=== PATIENT | female | born 1940 | race Caucasian/White ===

== ENCOUNTER → 2017-04-08 | Outpatient (CLI) | payer MEDICARE, OTHER ==
[~2017-04-08] MED LIST: ASPIRIN81 M2 PO; LASIX 20 MG TAB20 MG PO; LOPRESSOR 12.12.5 MG PO; LUMIGAN2.5 M1 OP; METFORMIN HCL500 MG PO; PREDNISONE 1 MG1 M1 PO; SYNTHROID100 MCG PO; XARELTO15 MG PO; ZOCOR20 MG PO
== END ==
LOC: M.ULTRA 10:27
DX: N95.0 Postmenopausal bleeding (principal); N88.8 Other specified noninflammatory disorders of cervix uteri; I48.91 Unspecified atrial fibrillation; I50.32 Chronic diastolic (congestive) heart failure; I27.89 Other specified pulmonary heart diseases; I10 Essential (primary) hypertension; E78.5 Hyperlipidemia, unspecified; E66.9 Obesity, unspecified; E11.9 Type 2 diabetes mellitus without complications; E03.9 Hypothyroidism, unspecified

== ENCOUNTER → 2017-12-16 | Outpatient (CLI) | payer MEDICARE, OTHER | LOC: M.RAD 09:52 | DX: Z12.31 Encounter for screening mammogram for malignant neoplasm of breast (principal) ==

== ENCOUNTER → 2018-12-18 | Outpatient (CLI) | payer MEDICARE, OTHER | LOC: M.RAD 13:00 | DX: Z12.31 Encounter for screening mammogram for malignant neoplasm of breast (principal) ==

== ENCOUNTER → 2019-01-22 | Outpatient (CLI) | payer MEDICARE, OTHER | LOC: M.LAB 15:36 | DX: I48.20 Chronic atrial fibrillation, unspecified (principal) ==

== ENCOUNTER → 2019-01-31 | Outpatient (CLI) | payer MEDICARE, OTHER ==
--- NOTE | 2019-01-31 13:45 | 2DMMODE ---
[place] [address] 2 D/M-MODE ECHOCARDIOGRAM Name: SHANTE CLEARY Room: [facility]#: [id number] Admission: 01/31/19 Attend Phys: Farzana Mejia, Discharge: Date of : 44 Date of Service: 01/31/19 1344 Report #: [id number] THIS REPORT FOR: //name// APPROVED REPORT Study performed: 01/31/2019 08:59:55 EXAM: Comprehensive 2D, Doppler, and color-flow Echocardiogram Patient Location: Out-Patient BSA: 1.91 HR: 65 bpm BP: 113/58 mmHg Other Information Study Quality: Good Indications Mitral Valve Disease Atrial Fibrillation 2D Dimensions IVSd: 12.92 (7-11mm) LVOT Diam: 20.87 (18-24mm) LVDd: 47.39 mm PWd: 10.83 (7-11mm) Ascending Ao: 30.90 (22-36mm) LVDs: 31.77 (25-40mm) Aortic Root: 24.43 mm Volumes Left Atrial Volume (Systole) LA ESV Index: 24.00 mL/m2 Aortic Valve AoV Peak Asim.: 1.25 m/s AO Peak Gr.: 6.22 mmHg LVOT Max P.52 mmHg AO Mean Gr.: 3.48 mmHg LVOT Mean P.53 mmHg LVOT Max V: 0.94 m/s AO V2 VTI: 26.45 cm LVOT Mean V: 0.56 m/s FRITZ (VTI): 2.93 cm2 LVOT V1 VTI: 22.65 cm Mitral Valve MV Decel. Time: 122.90 ms MV PHT: 35.64 ms MVA (PHT): 6.17 [place]2 [place] [address] 2 D/M-MODE ECHOCARDIOGRAM Name: SHANTE CLEARY Room: [facility]#: [id number] Admission: 01/31/19 Attend Phys: Farzana Mejia, Discharge: Date of : 44 Date of Service: 01/31/19 1344 Report #: [id number] TDI Medial E' Asim.: 0.14 m/s Lateral E' Asim.: 0.14 m/s Pulmonary Valve PV Peak Asim.: 0.92 m/s PV Peak Gr.: 3.36 mmHg Tricuspid Valve RAP Estimate: 5.00 mmHg TR Peak Gr.: 31.63 mmHg RVSP: 36.63 mmHg PA Pressure: 36.63 mmHg Left Ventricle The left ventricle is normal size. There is normal LV segmental wall motion. There is normal left ventricular wall thickness. Left ventricular systolic function is normal. The left ventricular ejection fraction is within the normal range. LVEF is 55-60%. This study is not technically sufficient to allow evaluation of the LV diastolic function due to atrial fibrillation. Right Ventricle The right ventricle is normal size. The right ventricular systolic function is normal. Atria Left atrium is moderately dilated. Right atrium is moderately dilated. Aortic Valve The aortic valve is normal in structure. No aortic regurgitation is present. There is no aortic valvular stenosis. Mitral Valve The mitral valve is normal in structure. Mild to moderate mitral regurgitation. No evidence of mitral valve stenosis. Tricuspid Valve The tricuspid valve is normal in structure. Mild tricuspid regurgitation. Moderate pulmonary hypertension. Pulmonic Valve The pulmonary valve is normal in structure. There is no pulmonic valvular regurgitation. Great Vessels The aortic root is normal in size. IVC [place] [address] 2 D/M-MODE ECHOCARDIOGRAM Name: [facility]ANTE CLEARY [id number] Admission: 01/31/19 Attend Phys: Farzana Mejia, Discharge: Date of : 44 Date of Service: 01/31/19 1344 Report #: [id number] collapses >50% with inspiration. Pericardium There is no pericardial effusion. <Conclusion> The left ventricle is normal size. There is normal left ventricular wall thickness. Left ventricular systolic function is normal. The left ventricular ejection fraction is within the normal range. LVEF is 55-60%. This study is not technically sufficient to allow evaluation of the LV diastolic function due to atrial fibrillation. The right ventricle is normal size. Left atrium is moderately dilated. Right atrium is moderately dilated. The aortic valve is normal in structure. The mitral valve is normal in structure. Mild to moderate mitral regurgitation. No evidence of mitral valve stenosis. The tricuspid valve is normal in structure. Mild tricuspid regurgitation. Moderate pulmonary hypertension. IVC is normal in size and collapses >50% with inspiration. There is no pericardial effusion. There is normal LV segmental wall motion. <ELECTRONICALLY SIGNED> By: Elías Levy MD, FACC 01/31/19 1344 1344 1344 Elías Levy MD, FACC /INF
== END ==
LOC: M.CRD 09:00
DX: I08.1 Rheumatic disorders of both mitral and tricuspid valves (principal); I27.20 Pulmonary hypertension, unspecified; Z88.2 Allergy status to sulfonamides; Z88.8 Allergy status to other drugs, medicaments and biological substances

== ENCOUNTER → 2019-06-07 | Outpatient (CLI) | payer MEDICARE, OTHER | LOC: M.RAD 08:40 | DX: N63.10 Unspecified lump in the right breast, unspecified quadrant (principal); R92.8 Other abnormal and inconclusive findings on diagnostic imaging of breast ==

== ENCOUNTER → 2019-09-03 | Outpatient (CLI) | payer MEDICARE, OTHER | LOC: M.RAD 11:45 | PROVIDERS: ATTEND Internal Medicine Cardiovascular Disease | DX: R09.02 Hypoxemia (principal) ==

== ENCOUNTER → 2019-10-29 | Outpatient (CLI) | payer MEDICARE, OTHER ==
[2019-10-29 15:10] LABS: ALBUMIN 3.8 g/dL (3.4-5.0); CALCIUM 8.8 mg/dL (8.5-10.1); CREATININE 0.8 mg/dL (0.6-1.3); POTASSIUM 4.5 mmol/L (3.5-5.1); TOTAL BILIRUBIN 0.4 mg/dL (<0.1-1.0); TOTAL PROTEIN 7.1 g/dL (6.4-8.2)
== END ==
LOC: M.LAB 14:17
PROVIDERS: ATTEND Internal Medicine Critical Care Medicine
DX: E87.79 Other fluid overload (principal); R06.02 Shortness of breath

== ENCOUNTER → 2019-11-15 | Outpatient (CLI) | payer MEDICARE, OTHER ==
--- NOTE | 2019-11-25 18:15 | PF ---
[address] [address] PULMONARY FUNCTION REPORT Name: SHANTE CLEARY Room: [facility]#: [id number] Admission: 11/15/19 Attend Phys: Adrián Correia MD Discharge: Date of : 44 Report #: [id number] THIS REPORT FOR: //name// CC: Adrián Lundberg [facility] ([place] DATE OF SERVICE: 11/15/2019 PULMONARY FUNCTION TEST The FEV1/FVC ratio is normal at 70% with an FVC decreased to 67% and FEV1 decreased to 63%. The CLP08-14 is also decreased to 31%. After the administration of a bronchodilator, there is a 12% increase in the patient's FEV1, which is however less than 200 mL. The patient's PCR38-48, however, does increase by 57%. There is no significant increase in the FVC. The patient's post-bronchodilator FEV1 is noted to be 1.36 liters. The total lung capacity is normal at 96% with a residual volume normal at 102%. The DLCO as adjusted for hemoglobin is decreased to 53%. IMPRESSION: 1. There is a moderate restrictive pattern on spirometry; however, restriction is not noted on lung volumes considering an increase in FEV1 and EAX05-90 as described above after the administration of a bronchodilator. It appears likely that the underlying etiology is moderate obstruction with evidence of reversibility. There may be a component of poor effort as well. 2. Normal lung volumes. 3. DLCO as adjusted for hemoglobin decreased to 53%. <ELECTRONICALLY SIGNED> By: Adrián Correia MD 11/25/19 1815 1908 Ajosue Correia MD /nt
== END ==
LOC: M.CT 11-06 08:00
PROVIDERS: ATTEND Internal Medicine Critical Care Medicine
DX: R06.02 Shortness of breath (principal); E87.79 Other fluid overload

== ENCOUNTER → 2019-11-26 | Outpatient (CLI) | payer MEDICARE, OTHER ==
[2019-11-26 08:15] LABS: CALCIUM 9.2 mg/dL (8.5-10.1); CREATININE 0.9 mg/dL (0.6-1.3); MAGNESIUM 1.8 mg/dL (1.8-2.4); POTASSIUM 3.7 mmol/L (3.5-5.1)
== END ==
LOC: M.LAB 07:45
PROVIDERS: ATTEND Internal Medicine Critical Care Medicine
DX: E87.79 Other fluid overload (principal)

== ENCOUNTER → 2019-12-07 | Outpatient (CLI) | payer MEDICARE, OTHER ==
--- NOTE | 2019-12-17 08:28 | SLEEP ---
[address] [address] SLEEP STUDY REPORT Name: EVINSHANTE J Room: [facility]#: [id number] Admission: 12/07/19 Attend Phys: Adrián Correia MD Discharge: Date of : 44 Report #: [id number] THIS REPORT FOR: //name// CC: Adrián Madrid This study has been reviewed in its entirety by a board certified sleep specialist DATE OF SERVICE: 12/07/2019 INDICATION FOR SLEEP STUDY: Hypersomnia. INTERPRETATION: Total duration of the study is 383 minutes out of which she was asleep for 123 minutes with an overall sleep efficiency markedly decreased to 32.2%. Sleep onset occurred around 9 minutes after lying down in bed and there is no REM sleep recorded during the sleep study. N1 sleep duration was 31% and elevated N2 duration is 93%. There is no N3 sleep recorded. There is no REM sleep recorded. This is a split night sleep study. During the initial part of the sleep study, there is a diagnostic portion, the patient was observed for 90 minutes, which included 46 minutes of sleep time. This entire duration is in non-REM sleep. During this time period, we recorded a large number of sleep related respiratory events. The patient is noted to have had 65 central apneas in addition to 17 hypopneas and 3 respiratory effort related arousals. Overall, apnea-hypopnea index was markedly elevated to 108. Body position data indicates the patient did not have any supine sleep recorded. The patient's mean heart rate at this time was 55 with a periodic limb movement index elevated to 97.6 with a periodic limb movement index with arousals being 26.4. Overall, arousal index was markedly elevated to 121 with marked sleep fragmentation observed. The patient was subsequently placed on a BiPAP, as the vast majority of events are of a central origin and persisted and the patient was initially placed on a CPAP. The patient was quickly switched over to a BiPAP. The patient remained on positive airway pressure therapy for 282 minutes. This included 78 minutes of sleep time. This entire duration was in non-REM sleep. Mean heart rate was 54, periodic limb movement index was now 15.5. Review of the BiPAP titration indicates the patient was titrated beginning with a BiPAP of 8/4, gradually increasing it to 12/6. The patient continued to have a large number of central events throughout the BiPAP titration and adequate control of the patient's sleep apnea was not achieved. The patient is noted to have had a desaturations both during the diagnostic sleep study as well as a positive airway pressure titration during the diagnostic portion. The patient's O2 saturation, however, [place] [address] SLEEP STUDY REPORT Name: SHANTE CLEARY Room: [facility] SIL Mckeon#: [id number] Admission: 12/07/19 Attend Phys: Adrián Correia MD Discharge: Date of : 44 Report #: [id number] at or above 88%. IMPRESSION: 1. Central sleep apnea with an apnea-hypopnea index markedly elevated at 108. It is, however, noted that a large number of central apneas are recorded close to sleep/wake transition. O2 saturation is adequately maintained at or above 88% during the diagnostic portion of the sleep study. 2. There is a marked reduction in total sleep time in the reduction in total sleep efficiency to 32.2% as above. 3. The patient failed CPAP therapy. CPAP is also not appropriate for this patient as the patient has central sleep apnea. The patient is also noted to continue to have sleep related respiratory events, primarily central on BiPAP therapy during the sleep study. RECOMMENDATIONS: 1. I recommend proceeding to a repeat sleep study for a repeat BiPAP titration. In case the patient continues to have central events and irregular BiPAP again during the next sleep study, then I would recommend placing the patient on a BiPAP AutoSV advanced. Note that the patient's last left ventricular ejection fraction is normal and therefore BiPAP AutoSV advanced can be used if indicated. 2. Prior to the next sleep study, I will evaluate regarding whether a hypnotic agent should be administered at the beginning of the sleep study. 3. Recommend avoiding driving or other activities requiring vigilance if drowsy. This entire sleep study was reviewed by board certified sleep physician. <ELECTRONICALLY SIGNED> By: Adrián Correia MD 12/17/19 0828 [id number] Correia MD /nt
== END ==
LOC: M.SLEEPLAB 21:00
PROVIDERS: ATTEND Internal Medicine Critical Care Medicine
DX: G47.31 Primary central sleep apnea (principal); G47.10 Hypersomnia, unspecified

== ENCOUNTER → 2019-12-11 | Outpatient (CLI) | payer MEDICARE, OTHER | LOC: M.CT 12-07 21:00 | PROVIDERS: ATTEND Internal Medicine Critical Care Medicine | DX: J84.10 Pulmonary fibrosis, unspecified (principal); K44.9 Diaphragmatic hernia without obstruction or gangrene; J98.4 Other disorders of lung; I25.10 Atherosclerotic heart disease of native coronary artery without angina pectoris ==

== ENCOUNTER → 2019-12-12 | Outpatient (CLI) | payer MEDICARE, OTHER ==
[2019-12-12 13:18] LABS: CALCIUM 9.3 mg/dL (8.5-10.1); CREATININE 0.9 mg/dL (0.6-1.3); MAGNESIUM 2.1 mg/dL (1.8-2.4); POTASSIUM 4.1 mmol/L (3.5-5.1)
== END ==
LOC: M.LAB 12:18
PROVIDERS: ATTEND Internal Medicine Critical Care Medicine
DX: E87.79 Other fluid overload (principal); R91.8 Other nonspecific abnormal finding of lung field

== ENCOUNTER → 2019-12-21 | Outpatient (CLI) | payer MEDICARE, OTHER | LOC: M.RAD 09:00 | PROVIDERS: ATTEND Family Medicine | DX: N63.10 Unspecified lump in the right breast, unspecified quadrant (principal); R92.2 Inconclusive mammogram ==

== ENCOUNTER → 2020-01-09 | Outpatient (CLI) | payer MEDICARE, OTHER ==
[2020-01-09 10:24] LABS: CALCIUM 8.7 mg/dL (8.5-10.1); CREATININE 0.8 mg/dL (0.6-1.3); MAGNESIUM 2.1 mg/dL (1.8-2.4)
== END ==
LOC: M.LAB 09:56
PROVIDERS: ATTEND Internal Medicine Critical Care Medicine
DX: R91.8 Other nonspecific abnormal finding of lung field (principal); E87.79 Other fluid overload

== ENCOUNTER → 2020-01-23 | Outpatient (CLI) | payer MEDICARE, OTHER ==
[2020-01-23 11:23] LABS: CALCIUM 9.1 mg/dL (8.5-10.1); CREATININE 0.8 mg/dL (0.6-1.3); MAGNESIUM 2.2 mg/dL (1.8-2.4); POTASSIUM 4.2 mmol/L (3.5-5.1)
== END ==
LOC: M.LAB 09:59
PROVIDERS: ATTEND Internal Medicine Critical Care Medicine
DX: R06.02 Shortness of breath (principal); R91.8 Other nonspecific abnormal finding of lung field

== ENCOUNTER → 2020-02-25 | Outpatient (CLI) | payer MEDICARE, OTHER ==
[2020-02-25 11:01] LABS: CALCIUM 9.8 mg/dL (8.5-10.1); CREATININE 0.9 mg/dL (0.6-1.3); MAGNESIUM 2.1 mg/dL (1.8-2.4); POTASSIUM 4.4 mmol/L (3.5-5.1)
== END ==
LOC: M.LAB 10:31
PROVIDERS: ATTEND Internal Medicine Critical Care Medicine
DX: R91.8 Other nonspecific abnormal finding of lung field (principal)

== ENCOUNTER → 2020-04-29 | Outpatient (CLI) | payer MEDICARE, OTHER ==
[2020-04-29 15:31] LABS: CREATININE 0.7 mg/dL (0.6-1.3); MAGNESIUM 2.3 mg/dL (1.8-2.4); POTASSIUM 3.9 mmol/L (3.5-5.1)
== END ==
LOC: M.LAB 14:58
PROVIDERS: ATTEND Internal Medicine Critical Care Medicine
DX: E87.79 Other fluid overload (principal); R06.02 Shortness of breath

== ENCOUNTER → 2020-06-09 | Outpatient (CLI) | payer MEDICARE, OTHER ==
[2020-06-09 15:34] LABS: CALCIUM 8.7 mg/dL (8.5-10.1); CREATININE 0.9 mg/dL (0.6-1.3); POTASSIUM 3.6 mmol/L (3.5-5.1)
== END ==
LOC: M.LAB 14:55
PROVIDERS: ATTEND Internal Medicine Critical Care Medicine
DX: R06.02 Shortness of breath (principal); E87.79 Other fluid overload

== ENCOUNTER → 2020-07-10 | Outpatient (CLI) | payer MEDICARE, OTHER ==
[2020-07-10 10:47] LABS: CALCIUM 9.4 mg/dL (8.5-10.1); CREATININE 0.7 mg/dL (0.6-1.3); POTASSIUM 4.1 mmol/L (3.5-5.1)
== END ==
LOC: M.LAB 10:16
PROVIDERS: ATTEND Internal Medicine Critical Care Medicine
DX: R06.02 Shortness of breath (principal); E87.79 Other fluid overload

== ENCOUNTER → 2020-09-02 | Outpatient (CLI) | payer MEDICARE, OTHER ==
[2020-09-02 12:18] LABS: CALCIUM 9.2 mg/dL (8.5-10.1); CREATININE 0.8 mg/dL (0.6-1.3); MAGNESIUM 1.8 mg/dL (1.8-2.4); POTASSIUM 3.7 mmol/L (3.5-5.1)
== END ==
LOC: M.LAB 11:32
PROVIDERS: ATTEND Internal Medicine Critical Care Medicine
DX: R06.02 Shortness of breath (principal); E87.70 Fluid overload, unspecified

== ENCOUNTER → 2020-12-22 | Outpatient (CLI) | payer MEDICARE, OTHER | LOC: M.RAD 09:09 | PROVIDERS: ATTEND Family Medicine | DX: Z12.31 Encounter for screening mammogram for malignant neoplasm of breast (principal) ==